=== PATIENT | male | born 1965 | race Two or more races ===

== ENCOUNTER → 2017-01-13 | Outpatient (CLI) | payer MEDICARE, MEDICAID ==
[2017-01-13 09:08] LABS: ABSOLUTE EOSINOPHILS # (AUTO) 0.2 10^3/uL (0.0-0.6); ABSOLUTE LYMPHOCYTES (AUTO) 1.8 10^3/uL (0.5-4.7); ABSOLUTE MONOCYTES (AUTO) 0.8 10^3/uL (0.1-1.4); ABSOLUTE NEUT (AUTO) 4.5 10^3/uL (1.7-8.2); BASOPHILS % (AUTO) 0.6 % (0-2); EOSINOPHILS % (AUTO) 2.3 % (0-6); HEMATOCRIT 35.2 % (37.9-51.0); HGB HCT DIFFERENCE 0.8; LYMPHOCYTES % (AUTO) 24.2 % (13-45); MEAN CORPUSCULAR HEMOGLOBIN 32.5 pg (27.0-33.4); MEAN CORPUSCULAR VOLUME 96 fl (80-97); MONOCYTES % (AUTO) 11.5 % (3-13); RED BLOOD COUNT 3.68 10^6/uL (4.35-5.55); SEGMENTED NEUTROPHILS % (AUTO) 61.4 % (42-78); WHITE BLOOD COUNT 7.3 10^3/uL (4.0-10.5)
[2017-01-13 09:27] LABS: ALANINE AMINOTRANSFERASE 28 U/L (21-72); ALBUMIN 3.9 g/dL (3.5-5.0); ALKALINE PHOSPHATASE 66 U/L (38-126); ANION GAP 8 (5-19); ASPARTATE AMINO TRANSFERASE 21 U/L (17-59); BILIRUBIN,DIRECT 0.4 mg/dL (0.0-0.4); BILIRUBIN,TOTAL 0.5 mg/dL (0.2-1.3); BLOOD UREA NITROGEN 28 mg/dL (7-20); CALCIUM 9.4 mg/dL (8.4-10.2); CARBON DIOXIDE 27 mmol/L (22-30); CHLORIDE 107 mmol/L (98-107); CHOLESTEROL 168.16 mg/dL (0-200); CREATININE RESULT 2.38 mg/dL (0.52-1.25); Direct HDL 61 mg/dL (>40); GLUCOSE 56 mg/dL (75-110); POTASSIUM 4.4 mmol/L (3.6-5.0); SODIUM 142.2 mmol/L (137-145); TOTAL PROTEIN 6.8 g/dL (6.3-8.2); TRIGLYCERIDES 62 mg/dL (<150)
[2017-01-13 09:50] LABS: DIRECT LDL 71 mg/dL (<100)
== END ==
LOC: OD 07:09
PROVIDERS: ATTEND Physician Assistant
DX: E11.40 Type 2 diabetes mellitus with diabetic neuropathy, unspecified (principal); E78.5 Hyperlipidemia, unspecified; D64.9 Anemia, unspecified
CPT/HCPCS: 36415; 80053; 80061; 83036; 85025

== ENCOUNTER → 2017-05-06 | Outpatient (CLI) | payer MEDICARE, MEDICAID ==
[2017-05-06 08:16] LABS: ABSOLUTE EOSINOPHILS # (AUTO) 0.2 10^3/uL (0.0-0.6); ABSOLUTE MONOCYTES (AUTO) 0.8 10^3/uL (0.1-1.4); BASOPHILS % (AUTO) 0.5 % (0-2); EOSINOPHILS % (AUTO) 2.6 % (0-6); HEMATOCRIT 32.9 % (37.9-51.0); HEMOGLOBIN 11.4 g/dL (13.5-17.0); HGB HCT DIFFERENCE 1.3; LYMPHOCYTES % (AUTO) 28.3 % (13-45); MEAN CORPUSCULAR HEMOGLOBIN 32.4 pg (27.0-33.4); MEAN CORPUSCULAR HGB CONC 34.6 g/dL (32.0-36.0); MEAN CORPUSCULAR VOLUME 94 fl (80-97); MONOCYTES % (AUTO) 10.8 % (3-13); RED BLOOD COUNT 3.51 10^6/uL (4.35-5.55); SEGMENTED NEUTROPHILS % (AUTO) 57.8 % (42-78)
[2017-05-06 08:42] LABS: ALANINE AMINOTRANSFERASE 24 U/L (21-72); ALBUMIN 3.7 g/dL (3.5-5.0); ALKALINE PHOSPHATASE 63 U/L (38-126); ANION GAP 9 (5-19); ASPARTATE AMINO TRANSFERASE 18 U/L (17-59); BILIRUBIN,DIRECT 0.3 mg/dL (0.0-0.4); BILIRUBIN,TOTAL 0.4 mg/dL (0.2-1.3); BLOOD UREA NITROGEN 21 mg/dL (7-20); CALCIUM 8.7 mg/dL (8.4-10.2); CARBON DIOXIDE 28 mmol/L (22-30); CHLORIDE 107 mmol/L (98-107); CHOLESTEROL 149.31 mg/dL (0-200); CREATININE RESULT 2.38 mg/dL (0.52-1.25); Direct HDL 54 mg/dL (>40); GLUCOSE 66 mg/dL (75-110); POTASSIUM 3.7 mmol/L (3.6-5.0); SODIUM 144.2 mmol/L (137-145); TOTAL PROTEIN 6.1 g/dL (6.3-8.2); TRIGLYCERIDES 123 mg/dL (<150)
[2017-05-06 08:53] LABS: DIRECT LDL 52 mg/dL (<100)
== END ==
LOC: OD 07:08
PROVIDERS: ATTEND Physician Assistant
DX: E11.40 Type 2 diabetes mellitus with diabetic neuropathy, unspecified (principal); E78.5 Hyperlipidemia, unspecified; I10 Essential (primary) hypertension
CPT/HCPCS: 36415; 80053; 80061; 83036; 85025

== ENCOUNTER → 2017-08-11 | Outpatient (CLI) | payer MEDICARE, MEDICAID ==
[2017-08-11 09:25] LABS: ALANINE AMINOTRANSFERASE 41 U/L (21-72); ALBUMIN 4.1 g/dL (3.5-5.0); ALKALINE PHOSPHATASE 59 U/L (38-126); ANION GAP 11 (5-19); ASPARTATE AMINO TRANSFERASE 27 U/L (17-59); BILIRUBIN,DIRECT 0.2 mg/dL (0.0-0.4); BILIRUBIN,TOTAL 0.3 mg/dL (0.2-1.3); BLOOD UREA NITROGEN 27 mg/dL (7-20); CALCIUM 9.6 mg/dL (8.4-10.2); CARBON DIOXIDE 26 mmol/L (22-30); CHLORIDE 107 mmol/L (98-107); GLUCOSE 59 mg/dL (75-110); POTASSIUM 4.3 mmol/L (3.6-5.0); SODIUM 144.4 mmol/L (137-145); TOTAL PROTEIN 6.6 g/dL (6.3-8.2)
== END ==
LOC: OD 07:47
PROVIDERS: ATTEND Physician Assistant
DX: E11.22 Type 2 diabetes mellitus with diabetic chronic kidney disease (principal); N18.9 Chronic kidney disease, unspecified
CPT/HCPCS: 36415; 80053; 83036

== ENCOUNTER → 2017-10-16 | Outpatient (CLI) | payer MEDICARE, MEDICAID ==
[2017-10-16 07:44] LABS: ABSOLUTE EOSINOPHILS # (AUTO) 0.1 10^3/uL (0.0-0.6); ABSOLUTE LYMPHOCYTES (AUTO) 1.1 10^3/uL (0.5-4.7); ABSOLUTE MONOCYTES (AUTO) 0.7 10^3/uL (0.1-1.4); ABSOLUTE NEUT (AUTO) 4.4 10^3/uL (1.7-8.2); BASOPHILS % (AUTO) 0.5 % (0-2); EOSINOPHILS % (AUTO) 1.8 % (0-6); HEMATOCRIT 34.4 % (37.9-51.0); HEMOGLOBIN 11.8 g/dL (13.5-17.0); LYMPHOCYTES % (AUTO) 17.8 % (13-45); MEAN CORPUSCULAR HEMOGLOBIN 31.7 pg (27.0-33.4); MEAN CORPUSCULAR HGB CONC 34.4 g/dL (32.0-36.0); MEAN CORPUSCULAR VOLUME 92 fl (80-97); MONOCYTES % (AUTO) 11.6 % (3-13); PLATELET COUNT 283 10^3/uL (150-450); RED BLOOD COUNT 3.73 10^6/uL (4.35-5.55); RED CELL DISTRIBUTION WIDTH 12.1 % (11.5-14.0); SEGMENTED NEUTROPHILS % (AUTO) 68.3 % (42-78); TOTAL CELLS COUNTED % (AUTO) 100 %; WHITE BLOOD COUNT 6.4 10^3/uL (4.0-10.5)
[2017-10-16 08:11] LABS: ALBUMIN 3.6 g/dL (3.5-5.0); ANION GAP 10 (5-19); BLOOD UREA NITROGEN 29 mg/dL (7-20); CALCIUM 8.9 mg/dL (8.4-10.2); CARBON DIOXIDE 30 mmol/L (22-30); CHLORIDE 104 mmol/L (98-107); GLUCOSE 245 mg/dL (75-110); PHOSPHORUS 3.9 mg/dL (2.5-4.5); POTASSIUM 4.4 mmol/L (3.6-5.0); SODIUM 143.8 mmol/L (137-145)
[2017-10-16 08:23] LABS: URINE CREATININE 87.5 mg/dL (22-328)
[2017-10-16 08:36] LABS: UR PRO/CREAT RATIO RESULT 5.1 mg/mg (0.0-0.2)
== END ==
LOC: OD 07:10
PROVIDERS: ATTEND Internal Medicine Nephrology
DX: E11.22 Type 2 diabetes mellitus with diabetic chronic kidney disease (principal); N18.4 Chronic kidney disease, stage 4 (severe); D64.9 Anemia, unspecified; E11.21 Type 2 diabetes mellitus with diabetic nephropathy
CPT/HCPCS: 36415; 80048; 82040; 82306; 82570; 83970; 84100; 84156; 85025

== ENCOUNTER 2017-11-03 14:12 | Emergency (ER) | payer MEDICARE, MEDICAID ==
[2017-11-03] MEDS ORDERED: ASPIRIN 81 MG TABLET, CHEWABLE PO ONE (15:25)
--- NOTE | 2017-11-03 15:32 | ER Document Report ---
ED Cardiac - General Chief Complaint: Chest Pain Stated Complaint: CHEST PAIN/HEADACHE Time Seen by Provider: 11/03/17 15:11 TRAVEL OUTSIDE OF THE [place] IN LAST 30 DAYS: No - HPI Notes: 52-year-old diabetic male presents with approximately 5 days of intermittent left-sided chest pain sharp in nature 11/09 no other associated symptoms with this. States every like 10 or 15 minutes he will get a sharp pain left side of his chest. This occurs at rest. Does not get worse with exertion denies diaphoresis, nausea. Is not reproducible. Patient has a history of stroke is on daily blood thinners. Patient states he placed 6 or 7 hours of video games a day. He will notice when he is playing with a sharp pain. Denies fever chills or trauma. - Related Data Allergies/Adverse Reactions: JANET Inhibitors Allergy (Verified 11/03/17 14:14) lisinopril Allergy (Verified 11/03/17 14:14) Past Medical History - Social History Smoking Status: Former Smoker Chew tobacco use (# tins/day): No Frequency of alcohol use: None Drug Abuse: None Family History: Reviewed & Not Pertinent Patient has suicidal ideation: No Patient has homicidal ideation: No - Past Medical History Cardiac Medical History: Reports: Hx Hypercholesterolemia, Hx Hypertension Pulmonary Medical History: Denies: Hx Tuberculosis Endocrine Medical History: Reports: Hx Diabetes Mellitus Type 1, Hx Diabetes Mellitus Type 2 Renal/ Medical History: Denies: Hx Peritoneal Dialysis GI Medical History: Reports: Hx Gastroesophageal Reflux Disease Psychiatric Medical History: Reports: Hx Schizophrenia Denies: Hx Depression Past Surgical History: Reports: Hx Oral Surgery - Jaw surgery. Denies: Hx Pacemaker - Immunizations Hx Diphtheria, Pertussis, Tetanus Vaccination: Yes Hx Pneumococcal Vaccination: 04/05/14 Review of Systems - Review of Systems Notes: REVIEW OF SYSTEMS: CONSTITUTIONAL: -fevers, -chills EENT: -eye pain, -difficulty swallowing, -nasal congestion CARDIOVASCULAR: +chest pain, -syncope. RESPIRATORY: -cough, -SOB GASTROINTESTINAL: -abdominal pain, -nausea, -vomiting, -diarrhea GENITOURINARY: -dysuria, -hematuria MUSCULOSKELETAL: -back pain, -neck pain SKIN: -rash or skin lesions. HEMATOLOGIC: -easy bruising or bleeding. LYMPHATIC: -swollen, enlarged glands. NEUROLOGICAL: -altered mental status or loss of consciousness, -headache, - neurologic symptoms PSYCHIATRIC: -anxiety, -depression. ALL OTHER SYSTEMS REVIEWED AND NEGATIVE. Physical Exam - Vital signs Vitals: Temp Pulse Resp BP Pulse Ox 97.6 F 64 16 135/67 H 98 11/03/17 14:26 11/03/17 14:11/03/17 14:11/03/17 14:11/03/17 14:26 - Notes Notes: PHYSICAL EXAMINATION: GENERAL: Well-appearing, well-nourished and in no acute distress. HEAD: Atraumatic, normocephalic. EYES: Pupils equal round and reactive to light, extraocular movements intact, sclera anicteric, conjunctiva are normal. ENT: nares patent, oropharynx clear without exudates. Moist mucous membranes. NECK: Normal range of motion, supple without lymphadenopathy LUNGS: Breath sounds clear to auscultation bilaterally and equal. No wheezes rales or rhonchi. HEART: Regular rate and rhythm without murmurs ABDOMEN: Soft, nontender, normoactive bowel sounds. No guarding, no rebound. No masses appreciated. EXTREMITIES: Normal range of motion, no pitting or edema. No cyanosis. NEUROLOGICAL: Cranial nerves grossly intact. Normal speech, normal gait. Normal sensory and motor exams. PSYCH: Normal mood, normal affect. SKIN: Warm, Dry, normal turgor, no rashes or lesions noted. Course - Re-evaluation Re-evalutation: 11/03/17 17:46 Well-appearing man presents with several days of intermittent short episodes of sharp shooting chest pain. Low risk heart score of 3. Extensive workup here unremarkable EKG is no ischemic changes chest x-ray is unremarkable troponins negative. Patient will be discharged home. Referral to outpatient cardiology stress test tomorrow. - Vital Signs Vital signs: Temp Pulse Resp BP Pulse Ox 97.6 F 64 16 135/67 H 98 11/03/17 14:26 11/03/17 14:26 11/03/17 14:11/03/17 14:11/03/17 14:26 - Laboratory Result Diagrams: 11/03/17 16:45 11/03/17 16:45 Laboratory results interpreted by me: 11/03/17 11/03/17 16:45 16:45 RBC 3.60 L Hgb 11.5 L Hct 33.2 L Carbon Dioxide 31 H BUN 38 H Creatinine 3.47 H Est GFR ( Amer) 23 L Est GFR (Non-Af Amer) 19 L Glucose 123 H - EKG Interpretation by Me Additional EKG results interpreted by me: 11/03/17 15:33 Sinus rhythm, no ST elevations or depressions, normal QRS. Discharge - Discharge Clinical Impression: Chest pain Qualifiers: Chest pain type: unspecified Qualified Code(s): R07.9 - Chest pain, unspecified Condition: Stable Disposition: HOME, SELF-CARE Instructions: Chest Pain of Unclear Cause ([facility]) Additional Instructions: Contact Cadiologist Rick Devries in [facility] will contact you for stress test Referrals: GRIFFIN SINGH MD [Primary Care Provider] - Follow up as needed
--- NOTE | 2017-11-03 16:06 | RADIOLOGY REPORT (SQ) ---
EXAM DESCRIPTION: CHEST 2 VIEWS COMPLETED DATE/TIME: 11/03/2017 3:54 pm REASON FOR STUDY: chest pain COMPARISON: 01/28/2016 EXAM PARAMETERS: NUMBER OF VIEWS: two views TECHNIQUE: Digital Frontal and Lateral radiographic views of the chest acquired. RADIATION DOSE: NA LIMITATIONS: none FINDINGS: LUNGS AND PLEURA: No opacities, masses or pneumothorax. No pleural effusion. MEDIASTINUM AND HILAR STRUCTURES: No masses or contour abnormalities. HEART AND VASCULAR STRUCTURES: Heart normal size. No evidence for failure. BONES: No acute findings. HARDWARE: None in the chest. OTHER: No other significant finding. IMPRESSION: NO ACUTE RADIOGRAPHIC FINDING IN THE CHEST. TECHNICAL DOCUMENTATION: JOB ID: [id number] [employer]- All Rights Reserved Reading location - IP/workstation name: [email or web address]
[2017-11-03 17:08] LABS: ABSOLUTE EOSINOPHILS # (AUTO) 0.1 10^3/uL (0.0-0.6); ABSOLUTE LYMPHOCYTES (AUTO) 1.4 10^3/uL (0.5-4.7); ABSOLUTE MONOCYTES (AUTO) 0.6 10^3/uL (0.1-1.4); ABSOLUTE NEUT (AUTO) 2.6 10^3/uL (1.7-8.2); BASOPHILS % (AUTO) 0.6 % (0-2); EOSINOPHILS % (AUTO) 2.2 % (0-6); HEMATOCRIT 33.2 % (37.9-51.0); HEMOGLOBIN 11.5 g/dL (13.5-17.0); LYMPHOCYTES % (AUTO) 29.2 % (13-45); MEAN CORPUSCULAR HEMOGLOBIN 31.9 pg (27.0-33.4); MEAN CORPUSCULAR HGB CONC 34.5 g/dL (32.0-36.0); MEAN CORPUSCULAR VOLUME 92 fl (80-97); MONOCYTES % (AUTO) 12.5 % (3-13); PLATELET COUNT 239 10^3/uL (150-450); RED CELL DISTRIBUTION WIDTH 11.9 % (11.5-14.0); SEGMENTED NEUTROPHILS % (AUTO) 55.5 % (42-78); TOTAL CELLS COUNTED % (AUTO) 100 %; WHITE BLOOD COUNT 4.7 10^3/uL (4.0-10.5)
[2017-11-03 17:24] LABS: ANION GAP 6 (5-19); BLOOD UREA NITROGEN 38 mg/dL (7-20); CALCIUM 9.3 mg/dL (8.4-10.2); CARBON DIOXIDE 31 mmol/L (22-30); CHLORIDE 104 mmol/L (98-107); GLUCOSE 123 mg/dL (75-110); POTASSIUM 4.7 mmol/L (3.6-5.0); SODIUM 140.9 mmol/L (137-145)
[2017-11-03 18:10] VITALS: BP 167/90
--- NOTE | 2017-11-03 20:01 | EKG REPORT ---
SEVERITY:- ABNORMAL ECG - SINUS RHYTHM CONSIDER LEFT VENTRICULAR HYPERTROPHY BORDERLINE T ABNORMALITIES, INFERIOR LEADS : Confirmed by: Eleonora Albright MD 03-Nov-2017 20:00:37
== END 2017-11-03 18:01 | disposition home or self-care (01) ==
LOC: ER 14:12
DX: R07.9 Chest pain, unspecified (principal); R51 Headache; Z86.73 Personal history of transient ischemic attack (TIA), and cerebral infarction without residual deficits; Z79.01 Long term (current) use of anticoagulants; I10 Essential (primary) hypertension; E11.9 Type 2 diabetes mellitus without complications
CPT/HCPCS: 93005; 99285; 36415; 85025; 80048; 84484; 71046; 93010; A9270

== ENCOUNTER → 2017-11-19 | Outpatient (CLI) | payer MEDICARE, MEDICAID ==
[2017-11-19 08:33] LABS: ALANINE AMINOTRANSFERASE 21 U/L (21-72); ALBUMIN 3.9 g/dL (3.5-5.0); ALKALINE PHOSPHATASE 50 U/L (38-126); ANION GAP 8 (5-19); ASPARTATE AMINO TRANSFERASE 14 U/L (17-59); BILIRUBIN,DIRECT 0.3 mg/dL (0.0-0.4); BILIRUBIN,TOTAL 0.4 mg/dL (0.2-1.3); BLOOD UREA NITROGEN 39 mg/dL (7-20); CALCIUM 8.8 mg/dL (8.4-10.2); CARBON DIOXIDE 29 mmol/L (22-30); CHLORIDE 108 mmol/L (98-107); GLUCOSE 74 mg/dL (75-110); POTASSIUM 4.2 mmol/L (3.6-5.0); TOTAL PROTEIN 6.6 g/dL (6.3-8.2); TRIGLYCERIDES 90 mg/dL (<150)
[2017-11-19 08:44] LABS: DIRECT LDL 45 mg/dL (<100)
== END ==
LOC: OD 07:25
PROVIDERS: ATTEND Internal Medicine
DX: E11.22 Type 2 diabetes mellitus with diabetic chronic kidney disease (principal); I10 Essential (primary) hypertension
CPT/HCPCS: 36415; 80053; 80061; 83036

== ENCOUNTER → 2018-01-28 | Outpatient (CLI) | payer MEDICARE, MEDICAID ==
[2018-01-28 08:35] LABS: ALANINE AMINOTRANSFERASE 19 U/L (21-72); ALBUMIN 3.9 g/dL (3.5-5.0); ALKALINE PHOSPHATASE 58 U/L (38-126); ANION GAP 11 (5-19); ASPARTATE AMINO TRANSFERASE 13 U/L (17-59); BILIRUBIN,DIRECT 0.3 mg/dL (0.0-0.4); BILIRUBIN,TOTAL 0.3 mg/dL (0.2-1.3); BLOOD UREA NITROGEN 25 mg/dL (7-20); CALCIUM 9.2 mg/dL (8.4-10.2); CARBON DIOXIDE 27 mmol/L (22-30); CHLORIDE 107 mmol/L (98-107); GLUCOSE 68 mg/dL (75-110); POTASSIUM 3.9 mmol/L (3.6-5.0); SODIUM 145.4 mmol/L (137-145); TOTAL PROTEIN 6.9 g/dL (6.3-8.2)
== END ==
LOC: OD 07:43
PROVIDERS: ATTEND Internal Medicine
DX: I10 Essential (primary) hypertension (principal)
CPT/HCPCS: 36415; 80053

== ENCOUNTER → 2018-06-01 | Outpatient (CLI) | payer MEDICARE, MEDICAID ==
[2018-06-01 08:19] LABS: ABSOLUTE EOSINOPHILS # (AUTO) 0.2 10^3/uL (0.0-0.6); ABSOLUTE LYMPHOCYTES (AUTO) 1.6 10^3/uL (0.5-4.7); ABSOLUTE MONOCYTES (AUTO) 0.8 10^3/uL (0.1-1.4); ABSOLUTE NEUT (AUTO) 4.2 10^3/uL (1.7-8.2); BASOPHILS % (AUTO) 0.4 % (0-2); EOSINOPHILS % (AUTO) 3.4 % (0-6); HEMATOCRIT 33.1 % (37.9-51.0); HEMOGLOBIN 11.6 g/dL (13.5-17.0); LYMPHOCYTES % (AUTO) 23.2 % (13-45); MEAN CORPUSCULAR HEMOGLOBIN 31.6 pg (27.0-33.4); MEAN CORPUSCULAR VOLUME 90 fl (80-97); MONOCYTES % (AUTO) 11.5 % (3-13); PLATELET COUNT 306 10^3/uL (150-450); RED BLOOD COUNT 3.67 10^6/uL (4.35-5.55); RED CELL DISTRIBUTION WIDTH 12.2 % (11.5-14.0); SEGMENTED NEUTROPHILS % (AUTO) 61.5 % (42-78); TOTAL CELLS COUNTED % (AUTO) 100 %; WHITE BLOOD COUNT 6.9 10^3/uL (4.0-10.5)
[2018-06-01 08:22] LABS: APPEARANCE,URINE CLEAR; BILIRUBIN,URINE NEGATIVE (NEGATIVE); COLOR,URINE STRAW; GLUCOSE, URINE 50 mg/dL (NEGATIVE); KETONES,URINE NEGATIVE (NEGATIVE); LEUKOCYTE ESTERASE,URINE NEGATIVE (NEGATIVE); NITRITE,URINE NEGATIVE (NEGATIVE); PROTEIN,URINE >=500 mg/dL (NEGATIVE); URINE SPECIFIC GRAVITY 1.008; UROBILINOGEN,URINE NEGATIVE mg/dL (<2.0)
[2018-06-01 08:44] LABS: ANION GAP 7 (5-19); BLOOD UREA NITROGEN 28 mg/dL (7-20); CALCIUM 8.9 mg/dL (8.4-10.2); CARBON DIOXIDE 30 mmol/L (22-30); CHLORIDE 105 mmol/L (98-107); GLUCOSE 88 mg/dL (75-110); POTASSIUM 3.9 mmol/L (3.6-5.0); SODIUM 142.1 mmol/L (137-145)
[2018-06-03 12:08] LABS: UR PRO/CREAT RATIO RESULT 5.5 mg/mg (0.0-0.2); URINE PROTEIN 398.3 mg/dL (<12)
== END ==
LOC: OD 07:21
PROVIDERS: ATTEND Internal Medicine Nephrology
DX: N18.4 Chronic kidney disease, stage 4 (severe) (principal); D63.1 Anemia in chronic kidney disease; E11.21 Type 2 diabetes mellitus with diabetic nephropathy
CPT/HCPCS: 36415; 80048; 81001; 82043; 82570; 84156; 85025

== ENCOUNTER → 2018-08-11 | Outpatient (CLI) | payer MEDICARE, MEDICAID ==
[2018-08-11 14:12] LABS: ALANINE AMINOTRANSFERASE 23 U/L (21-72); ALBUMIN 4.1 g/dL (3.5-5.0); ALKALINE PHOSPHATASE 68 U/L (38-126); ANION GAP 9 (5-19); ASPARTATE AMINO TRANSFERASE 14 U/L (17-59); BLOOD UREA NITROGEN 33 mg/dL (7-20); CALCIUM 9.4 mg/dL (8.4-10.2); CARBON DIOXIDE 28 mmol/L (22-30); CHLORIDE 106 mmol/L (98-107); CHOLESTEROL 165.55 mg/dL (0-200); POTASSIUM 3.5 mmol/L (3.6-5.0); SODIUM 142.5 mmol/L (137-145); TOTAL PROTEIN 6.9 g/dL (6.3-8.2); TRIGLYCERIDES 90 mg/dL (<150)
[2018-08-11 14:22] LABS: DIRECT LDL 67 mg/dL (<100)
[2018-08-11 15:31] LABS: BILIRUBIN,TOTAL 0.4 mg/dL (0.2-1.3)
[2018-08-11 15:34] LABS: GLUCOSE 54 mg/dL (75-110)
[2018-08-11 15:35] LABS: BILIRUBIN,DIRECT 0.2 mg/dL (0.0-0.4)
[2018-08-12 13:38] LABS: CREATININE URINE 108.2 mg/dL (Not Estab.)
== END ==
LOC: OD 12:13
PROVIDERS: ATTEND Internal Medicine
DX: E11.22 Type 2 diabetes mellitus with diabetic chronic kidney disease (principal); E78.5 Hyperlipidemia, unspecified; E53.8 Deficiency of other specified B group vitamins
CPT/HCPCS: 36415; 80053; 80061; 82043; 82570; 82607; 83036

== ENCOUNTER → 2018-09-14 | Outpatient (CLI) | payer MEDICARE, MEDICAID ==
[2018-09-14 10:39] LABS: ABSOLUTE EOSINOPHILS # (AUTO) 0.2 10^3/uL (0.0-0.6); ABSOLUTE LYMPHOCYTES (AUTO) 1.4 10^3/uL (0.5-4.7); ABSOLUTE MONOCYTES (AUTO) 0.7 10^3/uL (0.1-1.4); ABSOLUTE NEUT (AUTO) 3.5 10^3/uL (1.7-8.2); BASOPHILS % (AUTO) 0.6 % (0-2); EOSINOPHILS % (AUTO) 3.2 % (0-6); HEMATOCRIT 29.5 % (37.9-51.0); HEMOGLOBIN 10.5 g/dL (13.5-17.0); LYMPHOCYTES % (AUTO) 24.9 % (13-45); MEAN CORPUSCULAR HGB CONC 35.5 g/dL (32.0-36.0); MEAN CORPUSCULAR VOLUME 90 fl (80-97); MONOCYTES % (AUTO) 11.5 % (3-13); PLATELET COUNT 228 10^3/uL (150-450); RED BLOOD COUNT 3.27 10^6/uL (4.35-5.55); RED CELL DISTRIBUTION WIDTH 12.3 % (11.5-14.0); SEGMENTED NEUTROPHILS % (AUTO) 59.8 % (42-78); TOTAL CELLS COUNTED % (AUTO) 100 %; WHITE BLOOD COUNT 5.8 10^3/uL (4.0-10.5)
[2018-09-14 10:41] LABS: APPEARANCE,URINE CLEAR; BILIRUBIN,URINE NEGATIVE (NEGATIVE); COLOR,URINE STRAW; GLUCOSE, URINE 50 mg/dL (NEGATIVE); KETONES,URINE NEGATIVE (NEGATIVE); LEUKOCYTE ESTERASE,URINE NEGATIVE (NEGATIVE); NITRITE,URINE NEGATIVE (NEGATIVE); PROTEIN,URINE >=500 mg/dL (NEGATIVE); UROBILINOGEN,URINE NEGATIVE mg/dL (<2.0)
[2018-09-14 10:54] LABS: ALBUMIN 3.6 g/dL (3.5-5.0); ANION GAP 9 (5-19); BLOOD UREA NITROGEN 38 mg/dL (7-20); CALCIUM 8.7 mg/dL (8.4-10.2); CARBON DIOXIDE 27 mmol/L (22-30); CHLORIDE 104 mmol/L (98-107); GLUCOSE 110 mg/dL (75-110); PHOSPHORUS 4.6 mg/dL (2.5-4.5); POTASSIUM 3.8 mmol/L (3.6-5.0); SODIUM 140.4 mmol/L (137-145)
[2018-09-14 11:12] LABS: URINE CREATININE 94.9 mg/dL (22-328)
[2018-09-14 11:27] LABS: UR PRO/CREAT RATIO RESULT 3.7 mg/mg (0.0-0.2); URINE PROTEIN 349.6 mg/dL (<12)
== END ==
LOC: OD 09:24
PROVIDERS: ATTEND Internal Medicine Nephrology
DX: I12.9 Hypertensive chronic kidney disease with stage 1 through stage 4 chronic kidney disease, or unspecified chronic kidney disease (principal); N18.4 Chronic kidney disease, stage 4 (severe); E11.22 Type 2 diabetes mellitus with diabetic chronic kidney disease
CPT/HCPCS: 36415; 80069; 81001; 82306; 82570; 83970; 84156; 85025

== ENCOUNTER → 2018-11-10 | Outpatient (CLI) | payer MEDICARE, MEDICAID ==
[2018-11-10 09:03] LABS: ALANINE AMINOTRANSFERASE 46 U/L (21-72); ALBUMIN 4.3 g/dL (3.5-5.0); ALKALINE PHOSPHATASE 64 U/L (38-126); ANION GAP 13 (5-19); ASPARTATE AMINO TRANSFERASE 17 U/L (17-59); BILIRUBIN,DIRECT 0.3 mg/dL (0.0-0.4); BILIRUBIN,TOTAL 0.3 mg/dL (0.2-1.3); BLOOD UREA NITROGEN 51 mg/dL (7-20); CALCIUM 9.2 mg/dL (8.4-10.2); CARBON DIOXIDE 26 mmol/L (22-30); CHLORIDE 102 mmol/L (98-107); CHOLESTEROL 178.66 mg/dL (0-200); GLUCOSE 103 mg/dL (75-110); POTASSIUM 4.5 mmol/L (3.6-5.0); SODIUM 140.7 mmol/L (137-145); TRIGLYCERIDES 130 mg/dL (<150)
[2018-11-10 09:14] LABS: DIRECT LDL 67 mg/dL (<100)
== END ==
LOC: OD 07:19
PROVIDERS: ATTEND Internal Medicine
DX: E53.8 Deficiency of other specified B group vitamins (principal); E11.22 Type 2 diabetes mellitus with diabetic chronic kidney disease; E78.5 Hyperlipidemia, unspecified
CPT/HCPCS: 36415; 80053; 80061; 82607; 83036

== ENCOUNTER → 2018-11-12 | Outpatient (CLI) | payer MEDICARE, MEDICAID ==
[2018-11-12 07:57] LABS: ABSOLUTE EOSINOPHILS # (AUTO) 0.2 10^3/uL (0.0-0.6); ABSOLUTE LYMPHOCYTES (AUTO) 1.5 10^3/uL (0.5-4.7); ABSOLUTE MONOCYTES (AUTO) 0.9 10^3/uL (0.1-1.4); ABSOLUTE NEUT (AUTO) 4.8 10^3/uL (1.7-8.2); BASOPHILS % (AUTO) 0.5 % (0-2); EOSINOPHILS % (AUTO) 2.4 % (0-6); HEMOGLOBIN 10.3 g/dL (13.5-17.0); LYMPHOCYTES % (AUTO) 19.9 % (13-45); MEAN CORPUSCULAR HEMOGLOBIN 30.9 pg (27.0-33.4); MEAN CORPUSCULAR HGB CONC 34.3 g/dL (32.0-36.0); MEAN CORPUSCULAR VOLUME 90 fl (80-97); MONOCYTES % (AUTO) 11.7 % (3-13); PLATELET COUNT 339 10^3/uL (150-450); RED BLOOD COUNT 3.33 10^6/uL (4.35-5.55); RED CELL DISTRIBUTION WIDTH 12.6 % (11.5-14.0); SEGMENTED NEUTROPHILS % (AUTO) 65.5 % (42-78); TOTAL CELLS COUNTED % (AUTO) 100 %; WHITE BLOOD COUNT 7.3 10^3/uL (4.0-10.5)
[2018-11-12 08:16] LABS: APPEARANCE,URINE CLEAR; BILIRUBIN,URINE NEGATIVE (NEGATIVE); COLOR,URINE YELLOW; GLUCOSE, URINE 50 mg/dL (NEGATIVE); KETONES,URINE NEGATIVE (NEGATIVE); LEUKOCYTE ESTERASE,URINE NEGATIVE (NEGATIVE); NITRITE,URINE NEGATIVE (NEGATIVE); PROTEIN,URINE >=500 mg/dL (NEGATIVE); URINE SPECIFIC GRAVITY 1.012; UROBILINOGEN,URINE NEGATIVE mg/dL (<2.0)
[2018-11-12 08:16] LABS: ANION GAP 10 (5-19); BLOOD UREA NITROGEN 47 mg/dL (7-20); CARBON DIOXIDE 27 mmol/L (22-30); CHLORIDE 104 mmol/L (98-107); GLUCOSE 52 mg/dL (75-110); IRON(TIBC) 138.5 ug/dL (49-181); PHOSPHORUS 5.7 mg/dL (2.5-4.5); POTASSIUM 4.3 mmol/L (3.6-5.0); SODIUM 141.4 mmol/L (137-145)
[2018-11-12 08:29] LABS: URINE CREATININE 122.4 mg/dL (22-328)
[2018-11-12 08:43] LABS: UR PRO/CREAT RATIO RESULT 2.9 mg/mg (0.0-0.2); URINE PROTEIN 357.7 mg/dL (<12)
== END ==
LOC: OD 07:17
PROVIDERS: ATTEND Internal Medicine Nephrology
DX: I12.0 Hypertensive chronic kidney disease with stage 5 chronic kidney disease or end stage renal disease (principal); N18.5 Chronic kidney disease, stage 5; E11.22 Type 2 diabetes mellitus with diabetic chronic kidney disease; E11.40 Type 2 diabetes mellitus with diabetic neuropathy, unspecified; N25.81 Secondary hyperparathyroidism of renal origin; D63.1 Anemia in chronic kidney disease
CPT/HCPCS: 36415; 80048; 81001; 82306; 82570; 82728; 83540; 83550; 83970; 84100; 84156; 85025

== ENCOUNTER → 2018-12-28 | Outpatient (CLI) | payer MEDICARE, MEDICAID ==
[2018-12-28 10:08] LABS: CREATININE 8.18 mg/dL (0.52-1.25)
[2018-12-28 10:49] LABS: 24 HOUR URINE PROTEIN RESULT 2257 mg/day (42-225); URINE PROTEIN 111.2 mg/dL (<12)
[2018-12-28 10:50] LABS: URINE CREATININE 59.2 mg/dL (22-328)
[2018-12-30 07:45] LABS: HEPATITS B SURFACE ANTIGEN Negative (Negative)
[2018-12-30 08:37] LABS: HEPATITIS C VIRUS AB <0.1 s/co ratio (0.0-0.9)
== END ==
LOC: OD 08:38
PROVIDERS: ATTEND Internal Medicine Nephrology
DX: Z11.59 Encounter for screening for other viral diseases (principal); N18.5 Chronic kidney disease, stage 5; E11.21 Type 2 diabetes mellitus with diabetic nephropathy; E11.22 Type 2 diabetes mellitus with diabetic chronic kidney disease; I12.9 Hypertensive chronic kidney disease with stage 1 through stage 4 chronic kidney disease, or unspecified chronic kidney disease
CPT/HCPCS: 36415; 82575; 84156; 86317; 86803; 86804; 87340

== ENCOUNTER 2019-01-05 01:29 | Emergency (ER) | payer MEDICARE, MEDICAID ==
--- NOTE | 2019-01-05 08:14 | ER Document Report ---
ED General - General Chief Complaint: Post Surgical Bleeding Stated Complaint: BLEED FROM CHEST Time Seen by Provider: 01/05/19 07:10 Primary Care Provider: BRAYDON KOWALSKI MD [Primary Care Provider] - Follow up as needed TRAVEL OUTSIDE OF THE [place] IN LAST 30 DAYS: No - HPI Notes: Patient is a 53-year-old male who presents to the emergency department for evaluation of postoperative bleeding. The patient had a tunneled IJ catheter for dialysis placed yesterday [place]. He has had seepage of blood throughout the bandage that has been ongoing since the procedure. I wanted to evaluate the patient, he states he believes the bleeding stopped about an hour ago. He is currently on Plavix. He denies any pain. No difficulty breathing. No fevers or chills. Taking his medications as prescribed. - Related Data Allergies/Adverse Reactions: JANET Inhibitors Allergy (Verified 11/03/17 14:14) lisinopril Allergy (Verified 11/03/17 14:14) Home Medications: Norvasc, atenolol, atorvastatin, clonidine, Plavix, Flexeril, vitamin D2, ferrous sulfate, Lasix, Neurontin, paricalcitriol, pioglitazone, spironolactone, insulin Past Medical History - General Information source: Patient - Social History Smoking Status: Never Smoker Family History: Reviewed & Not Pertinent Patient has suicidal ideation: No Patient has homicidal ideation: No - Past Medical History Cardiac Medical History: Reports: Hx Hypercholesterolemia, Hx Hypertension Pulmonary Medical History: Denies: Hx Tuberculosis Neurological Medical History: Reports: Hx Cerebrovascular Accident Endocrine Medical History: Reports: Hx Diabetes Mellitus Type 2 Renal/ Medical History: Reports: Hx End Stage Renal Disease. Denies: Hx Peritoneal Dialysis GI Medical History: Reports: Hx Gastroesophageal Reflux Disease Psychiatric Medical History: Reports: Hx Schizophrenia Denies: Hx Depression Past Surgical History: Reports: Hx Oral Surgery - Jaw surgery. Denies: Hx Pacemaker - Immunizations Hx Diphtheria, Pertussis, Tetanus Vaccination: Yes Hx Pneumococcal Vaccination: 04/05/14 Review of Systems - Review of Systems Constitutional: No symptoms reported EENT: No symptoms reported Cardiovascular: No symptoms reported Respiratory: No symptoms reported Gastrointestinal: No symptoms reported Genitourinary: No symptoms reported Musculoskeletal: No symptoms reported Skin: See HPI Hematologic/Lymphatic: See HPI Neurological/Psychological: No symptoms reported Physical Exam - Vital signs Vitals: Temp Pulse Resp BP Pulse Ox 98.0 F 51 L 16 162/76 H 99 01/05/19 02:03 01/05/19 02:03 01/05/19 02:03 01/05/19 02:03 01/05/19 02:03 - Notes Notes: This is a very pleasant 53-year-old male who appears her stated age in no acute distress. Eyes and was functioning traumatic. Pupils are equal round reactive to light. Oral mucosa is moist. Heart is regular rate and rhythm, lungs are clear to auscultation bilaterally. Examination of the left chest wall yields a well bandaged tunneled IJ catheter. The bandages are saturated with blood. He has [address] near the medial clavicle. No active bleeding. He does have a significant amount of clot with hemostasis noted at the site of the catheter entrance into the skin, down to the suture sites on the catheter itself. Absolutely no active bleeding, no induration. No subcutaneous emphysema. Course - Re-evaluation Re-evalutation: 01/05/19 08:13 Patient presents emergency department for evaluation. His bleeding is stopped at this time. I am not inclined to disrupt the clot that he has in place at this time. The area was thoroughly cleansed around the site, and redressed in the same fashion as done initially. Patient tolerated this well. We will have him follow-up with primary care. He is to return to the ED with worsening or concerning symptoms of any sort. - Vital Signs Vital signs: Temp Pulse Resp BP Pulse Ox 98.0 F 51 L 16 162/76 H 99 01/05/19 02:03 01/05/19 02:03 01/05/19 02:03 01/05/19 02:03 01/05/19 02:03 Discharge - Discharge Clinical Impression: Postoperative bleeding from incision Condition: Stable Disposition: HOME, SELF-CARE Additional Instructions: Keep bandage in place. If your bleeding returns, apply pressure. If it persists return to the ED. Otherwise follow-up with primary care this week, return to the ER with worsening or concerning symptoms of any sort. Referrals: BRAYDON KOWALSKI MD [Primary Care Provider] - Follow up as needed
[2019-01-05 08:54] VITALS: BP 149/72
== END 2019-01-05 09:56 | disposition home or self-care (01) ==
LOC: ER 01:29
DX: L76.22 Postprocedural hemorrhage of skin and subcutaneous tissue following other procedure (principal); Z79.899 Other long term (current) drug therapy; I10 Essential (primary) hypertension; E11.9 Type 2 diabetes mellitus without complications
CPT/HCPCS: 99283

== ENCOUNTER 2019-01-12 18:39 | Emergency (ER) | payer MEDICARE, MEDICAID ==
--- NOTE | 2019-01-12 19:14 | ER Document Report ---
ED Medical Screen (RME) - General Chief Complaint: Numbness Stated Complaint: FACIAL NUMBNESS Time Seen by Provider: 01/12/19 19:02 Primary Care Provider: BRAYDON KOWALSKI MD [Primary Care Provider] - Follow up as needed Mode of Arrival: Ambulatory Information source: Patient Notes: HPI: This is a 53-year-old male history of diabetes currently on dialysis Friday, , Friday, here today for diffuse complete right-sided numbness and tingling since about 11:30 AM after getting his dialysis today. This is his third dialysis treatment ever. his fistula is in his left upper anterior chest. pcp is mesha. rectifying attendant is katherine and he goes to [facility] for dialysis. He states the numbness initially started around his lips and felt like his heart was racing a little bit and he was sweaty and nauseous about an hour into his dialysis. He states he is nervous about getting dialysis done. Patient states he was nervous about going to this dialysis facility because his mother went to dialysis there and she is no longer alive. He denies breathing faster or hyperventilating however. He has had a stroke before in the past but states he only had numbness in his right buttocks during that stroke and the numbness was not completely on the entire right side like it is now. He states he had some cramping after the dialysis because they took too much fluid off so they gave him fluid back to try to offset the dehydration which did improve the cramping. He states he felt a little dizzy so he was sent over for evaluation. No altered mental status or syncope. No seizures. No history of this before. he denies any other changes in neurologic. No other complaints at this time. ROS neg to include 10 systems, unless mentioned in the hpi. PE:>>>> PHYSICAL_EXAM: GENERAL_APPEARANCE: well_nourished, alert, cooperative, no_acute_distress, no_obvious_discomfort. pleasant, obese middle aged male who is a somewhat poor historian, speaking in full sentences, in no sign of pain or resp distress, adult male family member at bedside, both speak good beninese VITALS: reviewed, see vital signs table. HEAD: no_swelling\tenderness on the head. normocephalic. atraumatic. no camejo signs. no raccoons eyes. EYES: PERRL, EOMI, conjunctiva_clear. NOSE: no_nasal_discharge. MOUTH: (-)decreased moisture. THROAT: no_tonsilar_inflammation, no_airway_obstruction. no_lymphadenopathy NECK: supple, no_neck_tenderness, full rom. full strength. no jvd. no meningeal signs. BACK: no_back_tenderness. CHEST_WALL: no_chest_tenderness. no overlying skin changes, port intact to left upper anterior chest with dressing intact. no sign of bleeding or infection. nonttp. dressing not removed. LUNGS: no_wheezing, ctab (-)accessory muscle use, good air exchange bilateral. HEART: normal_rate, normal_rhythm, ABDOMEN: normal_BS, soft, no_abd_tenderness, (-)guarding, (-)rebound, no distension or peritoneal signs. no cva ttp EXTREMITIES: strength 5/5 in all_extremities, good pulses in all_extremities, no_swelling\tenderness in the extremities, no_edema. full rom. normal gait. good pulses. brisk cap refill. good hand a and p technician. NEURO: motor and sensation intact, SKIN: warm, dry, good_color, no_rash. MENTAL_STATUS: speech_clear, oriented_X_3, normal_affect, responds_appropriately to questions. MDM: I have ordered labs and initial work-up and patient will be transferred to the main ER for further work-up. I have greeted and performed a rapid initial assessment of this patient. A comprehensive ED assessment and evaluation of the patient, analysis of test results and completion of medical decision making process will be conducted by an additional ED providers. Documentation achieved through voice recording which my lead to some occasional accidental typographical errors. Extensive efforts have been made to proof read documentation to make sure these are the least as possible Temp Pulse Resp BP Pulse Ox 01/12/19 18:49 98.2 F 69 16 147/81 H 100 Category Date Time Status EKG Documentation STAT Care 01/12/19 19:18 Ordered CHEST 2 VIEWS [RAD] Stat Exams 01/12/19 19:[address] HEAD WITHOUT [CT] Stat Exams 01/12/19 19:17 Ordered CBC WITH DIFF [HEME] Stat Lab 01/12/19 19:15 Ordered COMPREHENSIVE METABOLIC PANEL [CHEM] Stat Lab 01/12/19 19:15 Ordered CREATINE KINASE MB [CHEM] Stat Lab 01/12/19 19:15 Ordered CREATINE KINASE [CHEM] Stat Lab 01/12/19 19:15 Ordered MAGNESIUM [CHEM] Stat Lab 01/12/19 19:20 Ordered NT PRO BNP [CHEM] Stat Lab 01/12/19 19:16 Ordered PARTIAL THROMBOPLASTIN TIME [COAG] Stat Lab 01/12/19 19:16 Ordered PROTHROMBIN TIME/INR [COAG] Stat Lab 01/12/19 19:16 Ordered T4 [FREE T4 (FREE THYROXINE)] [CHEM] Stat Lab 01/12/19 19:20 Ordered TROPONIN I [CHEM] Stat Lab 01/12/19 19:16 Ordered TSH [THYROID STIMULATING HORMONE] [CHEM] Stat Lab 01/12/19 19:20 Ordered URINALYSIS [URIN] Stat Lab 01/12/19 19:16 Uncollected EKG ER ONLY [ER] Stat Oth 01/12/19 19:15 Ordered TRAVEL OUTSIDE OF THE [place] IN LAST 30 DAYS: No - Related Data Allergies/Adverse Reactions: JANET Inhibitors Allergy (Verified 01/12/19 18:43) lisinopril Allergy (Verified 01/12/19 18:43) Past Medical History - Past Medical History Cardiac Medical History: Reports: Hx Hypercholesterolemia, Hx Hypertension Pulmonary Medical History: Denies: Hx Tuberculosis Neurological Medical History: Reports: Hx Cerebrovascular Accident Endocrine Medical History: Reports: Hx Diabetes Mellitus Type 1, Hx Diabetes Alisson litus Type 2 Renal/ Medical History: Reports: Hx End Stage Renal Disease. Denies: Hx Peritoneal Dialysis GI Medical History: Reports: Hx Gastroesophageal Reflux Disease Psychiatric Medical History: Reports: Hx Schizophrenia Denies: Hx Depression Past Surgical History: Reports: Hx Oral Surgery - Jaw surgery. Denies: Hx Pacemaker - Immunizations Hx Diphtheria, Pertussis, Tetanus Vaccination: Yes Physical Exam - Vital signs Vitals: Temp Pulse Resp BP Pulse Ox 98.2 F 69 16 147/81 H 100 01/12/19 18:49 01/12/19 18:49 01/12/19 18:49 01/12/19 18:49 01/12/19 18:49 Course - Vital Signs Vital signs: Temp Pulse Resp BP Pulse Ox 98.2 F 69 16 147/81 H 100 01/12/19 18:49 01/12/19 18:49 01/12/19 18:49 01/12/19 18:49 01/12/19 18:49 Doctor's Discharge - Discharge Referrals: BRAYDON KOWALSKI MD [Primary Care Provider] - Follow up as needed
[2019-01-12 20:00] LABS: ABSOLUTE EOSINOPHILS # (AUTO) 0.1 10^3/uL (0.0-0.6); ABSOLUTE LYMPHOCYTES (AUTO) 0.9 10^3/uL (0.5-4.7); ABSOLUTE MONOCYTES (AUTO) 0.5 10^3/uL (0.1-1.4); ABSOLUTE NEUT (AUTO) 3.9 10^3/uL (1.7-8.2); BASOPHILS % (AUTO) 0.5 % (0-2); EOSINOPHILS % (AUTO) 2.1 % (0-6); HEMATOCRIT 25.3 % (37.9-51.0); HEMOGLOBIN 8.7 g/dL (13.5-17.0); LYMPHOCYTES % (AUTO) 17.2 % (13-45); MEAN CORPUSCULAR HEMOGLOBIN 31.2 pg (27.0-33.4); MEAN CORPUSCULAR HGB CONC 34.3 g/dL (32.0-36.0); MEAN CORPUSCULAR VOLUME 91 fl (80-97); MONOCYTES % (AUTO) 8.9 % (3-13); PLATELET COUNT 218 10^3/uL (150-450); RED BLOOD COUNT 2.78 10^6/uL (4.35-5.55); RED CELL DISTRIBUTION WIDTH 12.4 % (11.5-14.0); SEGMENTED NEUTROPHILS % (AUTO) 71.3 % (42-78); TOTAL CELLS COUNTED % (AUTO) 100 %; WHITE BLOOD COUNT 5.4 10^3/uL (4.0-10.5)
[2019-01-12 20:03] LABS: INTERNATIONAL RATION (INR) 1.02; PROTHROMBIN TIME 13.4 SEC (11.4-15.4)
[2019-01-12 20:04] LABS: PARTIAL THROMBOPLASTIN TIME 27.9 SEC (23.5-35.8)
[2019-01-12 20:16] LABS: ALBUMIN 4.7 g/dL (3.5-5.0); ALKALINE PHOSPHATASE 56 U/L (38-126); ANION GAP 10 (5-19); ASPARTATE AMINO TRANSFERASE 17 U/L (17-59); BILIRUBIN,DIRECT 0.3 mg/dL (0.0-0.4); BILIRUBIN,TOTAL 0.3 mg/dL (0.2-1.3); BLOOD UREA NITROGEN 21 mg/dL (7-20); CARBON DIOXIDE 33 mmol/L (22-30); CHLORIDE 91 mmol/L (98-107); GLUCOSE 306 mg/dL (75-110); POTASSIUM 4.1 mmol/L (3.6-5.0); TOTAL PROTEIN 7.4 g/dL (6.3-8.2)
[2019-01-12 20:28] LABS: CREATINE KINASE MB 0.66 ng/mL (<4.55); NT PRO BNP 314 pg/mL (5-900); TROPONIN I < 0.012 ng/mL
--- NOTE | 2019-01-12 20:32 | RADIOLOGY REPORT (SQ) ---
EXAM DESCRIPTION: XR CHEST 2 VIEWS COMPLETED DATE/TME: 01/12/2019 19:16 CLINICAL HISTORY: 53 years, Male, cramping COMPARISON: X-ray chest 01/03/2018 NUMBER OF VIEWS: TECHNIQUE: LIMITATIONS: None. FINDINGS: No evidence of pulmonary infiltrate or pleural effusion. The heart and mediastinum are unremarkable. Pulmonary vascularity appears normal. There is a large bore central venous line with its tip in the superior vena cava. This is a new finding, as compared with the prior study. IMPRESSION: No acute finding. copyright 2010 [employer]- All Rights Reserved
[2019-01-12 20:33] LABS: FREE T4 (FREE THYROXINE) 1.08 ng/dL (0.78-2.19)
--- NOTE | 2019-01-12 20:34 | RADIOLOGY REPORT (SQ) ---
EXAM DESCRIPTION: CT HEAD WITHOUT INTRAVENOUS CONTRAST CLINICAL HISTORY: Right sided numbness. COMPARISON: CT 12/30/2011. TECHNIQUE: CT of the head was performed without intravenous contrast .This exam was performed according to our departmental dose-optimization program, which includes automated exposure control, adjustment of the mA and/or KV according to the patient's size and/or use of iterative reconstruction technique. FINDINGS: normal size ventricles. No evidence for cortical atrophy. Mild bifrontal chronic appearing white matter changes. No obvious acute intra-axial or extra-axial abnormality. Mastoid air cells, paranasal sinuses and bony calvarium are unremarkable. IMPRESSION: There are no acute intracranial findings.
[2019-01-12 20:39] LABS: APPEARANCE,URINE CLEAR; BILIRUBIN,URINE NEGATIVE (NEGATIVE); COLOR,URINE YELLOW; GLUCOSE, URINE >=500 mg/dL (NEGATIVE); KETONES,URINE NEGATIVE (NEGATIVE); LEUKOCYTE ESTERASE,URINE NEGATIVE (NEGATIVE); NITRITE,URINE NEGATIVE (NEGATIVE); PROTEIN,URINE >=500 mg/dL (NEGATIVE); URINE SPECIFIC GRAVITY 1.006; UROBILINOGEN,URINE NEGATIVE mg/dL (<2.0)
[2019-01-12 20:47] LABS: THYROID STIMULATING HORMONE 1.82 uIU/mL (0.47-4.68)
[2019-01-12] MEDS ORDERED: CYCLOBENZAPRINE HCL 10 MG TABLET PO ONE (22:32)
--- NOTE | 2019-01-12 22:38 | ER Document Report ---
ED General - General Chief Complaint: Numbness Stated Complaint: FACIAL NUMBNESS Time Seen by Provider: 01/12/19 19:02 Primary Care Provider: BRAYDON KOWALSKI MD [Primary Care Provider] - Follow up as needed Mode of Arrival: Ambulatory TRAVEL OUTSIDE OF THE [place] IN LAST 30 DAYS: No - HPI Notes: Patient is a 53-year-old male who presents to the emergency department for evaluation. He states he started having perioral, and then right-sided numbness and tingling, about an hour and a half in the dialysis today. He states that that was just before noon. He actually has had perioral numbness and right arm numbness with dialysis on Friday. This is only his third dialysis ever. He does have a history of stroke, states he had right buttock numbness at this time, but his son also notes that he had facial droop and dysarthria associated with this. He continues to take Plavix. The patient denies any difficulty seeing, speaking, swallowing. He states that he felt cramping in his legs during dialysis. He states that they "took too much fluid out," and told him that they were putting some back in. He has had some intermittent cramping on his right side as well. He states he feels tight on that side. This has been an intermittent feeling he has had since his CVA. - Related Data Allergies/Adverse Reactions: JANET Inhibitors Allergy (Verified 01/12/19 18:43) lisinopril Allergy (Verified 01/12/19 18:43) Past Medical History - General Information source: Patient - Social History Smoking Status: Unknown if Ever Smoked Family History: Reviewed & Not Pertinent Patient has suicidal ideation: No Patient has homicidal ideation: No - Past Medical History Cardiac Medical History: Reports: Hx Hypercholesterolemia, Hx Hypertension Pulmonary Medical History: Denies: Hx Tuberculosis Neurological Medical History: Reports: Hx Cerebrovascular Accident Endocrine Medical History: Reports: Hx Diabetes Mellitus Type 2 Renal/ Medical History: Reports: Hx End Stage Renal Disease. Denies: Hx Peritoneal Dialysis GI Medical History: Reports: Hx Gastroesophageal Reflux Disease Psychiatric Medical History: Reports: Hx Schizophrenia Denies: Hx Depression Past Surgical History: Reports: Hx Oral Surgery - Jaw surgery. Denies: Hx Pacemaker - Immunizations Hx Diphtheria, Pertussis, Tetanus Vaccination: Yes Hx Pneumococcal Vaccination: 04/05/14 Review of Systems - Review of Systems Constitutional: No symptoms reported EENT: No symptoms reported Cardiovascular: No symptoms reported Respiratory: No symptoms reported Gastrointestinal: No symptoms reported Genitourinary: No symptoms reported Musculoskeletal: No symptoms reported Skin: No symptoms reported Neurological/Psychological: See HPI Physical Exam - Vital signs Vitals: Temp Pulse Resp BP Pulse Ox 98.2 F 69 16 147/81 H 100 01/12/19 18:49 01/12/19 18:49 01/12/19 18:49 01/12/19 18:49 01/12/19 18:49 - Notes Notes: This is a pleasant but anxious appearing 53-year-old male, who appears his stated age in no acute distress. Vital signs reviewed, please refer to chart. Head is normocephalic, atraumatic. Pupils equal round, reactive to light. Neck is supple without meningismus. Dialysis catheter in place in the left upper chest, no surrounding induration, erythema noted. Heart is regular rate and rhythm. Lungs are clear to auscultation bilaterally. Abdomen is soft, nontender, normoactive bowel sounds throughout. Extremities without cyanosis, clubbing. Posterior calves are nontender. Peripheral pulses are equal. Skin is warm and dry. Patient is awake, alert, oriented x3. Cranial nerves II - XII are grossly intact without focal neurological deficits. Strength is plus 5 out of 5 bilateral upper and lower extremities. Sensation is intact. Reflexes symmetrical. Intact [id number], rapid alternating movements, [id number]. Course - Re-evaluation Re-evalutation: 01/12/19 22:35 Patient presents emergency department for evaluation. He complains of perioral numbness and right-sided tingling, but on exam he has good sensation to light touch, deep pressure, and discrimination. I strongly suspect there is some aspect of anxiety in this patient. Again his neurological exam is entirely unremarkable. His vital signs are normal. His lab did reveal some mild electrolyte abnormalities, and CT scan was unremarkable. The patient did receive IV fluids after dialysis today, and will go back to dialysis on . I am not inclined to give extra IV fluids to a patient who is already on dialysis, especially seeing as he had some earlier today. He remained stable throughout the course of his stay. I encouraged him to continue to follow-up with Dr. Estes and Dr. Kowalski. He actually has a scheduled appointment with Dr. Kowalski in a few days. He states he has been getting some intermittent cramping, so he was given an extra dose of Flexeril, which she Dwayne takes at home. He is to return to the emergency department with worsening or new concerning symptoms of any sort. 01/12/19 22:39 - Vital Signs Vital signs: Temp Pulse Resp BP Pulse Ox 98.2 F 69 16 147/81 H 100 01/12/19 18:49 01/12/19 18:49 01/12/19 18:49 01/12/19 18:49 01/12/19 18:49 - Laboratory Result Diagrams: 01/12/19 19:40 01/12/19 19:40 Laboratory results interpreted by me: 01/12/19 01/12/19 01/12/19 19:40 19:40 19:40 RBC 2.78 L Hgb 8.7 L Hct 25.3 L Sodium 134.0 L Chloride 91 L Carbon Dioxide 33 H BUN 21 H Creatinine 4.35 H Est GFR ( Amer) 17 L Est GFR (Non-Af Amer) 14 L Glucose 306 H Calcium 8.0 L Creatine Kinase 208 H Urine Protein Urine Glucose (UA) Urine Blood 01/12/19 20:04 RBC Hgb Hct Sodium Chloride Carbon Dioxide BUN Creatinine Est GFR ( Amer) Est GFR (Non-Af Amer) Glucose Calcium Creatine Kinase Urine Protein >=500 H Urine Glucose (UA) >=500 H Urine Blood SMALL H - Diagnostic Test Radiology reviewed: Reports reviewed Radiology results interpreted by me: 01/12/19 22:38 Chest X-Ray 01/12/19 19:16 IMPRESSION: No acute finding. copyright 2010 [employer]- All Rights Reserved Head CT 01/12/19 19:17 IMPRESSION: There are no acute intracranial findings. - EKG Interpretation by Me Additional EKG results interpreted by me: 01/12/19 22:41 Sinus mechanism with a rate of 60 bpm. Normal axis. LVH with ST changes consistent with early repolarization. No significant change compared to prior study of November 13, 2017. Discharge - Discharge Clinical Impression: Muscle cramps, Paresthesias Condition: Stable Disposition: HOME, SELF-CARE Instructions: Numbness or Paresthesia ([facility]) Additional Instructions: Continue your home medications as prescribed. Follow-up with Dr. Kowalski as scheduled, reports a dialysis as usual on . Return to the emergency department with worsening or new concerning symptoms of any sort. Referrals: BRAYDON KOWALSKI MD [Primary Care Provider] - Follow up as needed
[2019-01-13 00:53] VITALS: BP 129/78
--- NOTE | 2019-01-13 14:55 | EKG REPORT ---
SEVERITY:- ABNORMAL ECG - SINUS RHYTHM PROBABLE LEFT VENTRICULAR HYPERTROPHY : Confirmed by: Taz Campbell 13-Jan-2019 14:54:34
== END 2019-01-13 00:53 | disposition home or self-care (01) ==
LOC: ER 18:39
DX: R20.0 Anesthesia of skin (principal); R20.2 Paresthesia of skin; R25.2 Cramp and spasm; I12.0 Hypertensive chronic kidney disease with stage 5 chronic kidney disease or end stage renal disease; N18.6 End stage renal disease; E11.22 Type 2 diabetes mellitus with diabetic chronic kidney disease; Z99.2 Dependence on renal dialysis; Z86.73 Personal history of transient ischemic attack (TIA), and cerebral infarction without residual deficits; Z79.02 Long term (current) use of antithrombotics/antiplatelets; Z88.8 Allergy status to other drugs, medicaments and biological substances
CPT/HCPCS: 93005; 99284; 36415; 84439; 82553; 82550; 83735; 84443; 85025; 85610; 85730; 80053; 81001; 84484; 83880; 71046; 70450; 93010; A9270

== ENCOUNTER → 2019-02-10 | Outpatient (CLI) | payer MEDICARE, MEDICAID ==
[2019-02-10 09:46] LABS: ALBUMIN 4.5 g/dL (3.5-5.0); ALKALINE PHOSPHATASE 89 U/L (38-126); ANION GAP 12 (5-19); ASPARTATE AMINO TRANSFERASE 14 U/L (17-59); BILIRUBIN,DIRECT 0.3 mg/dL (0.0-0.4); BILIRUBIN,TOTAL 0.3 mg/dL (0.2-1.3); BLOOD UREA NITROGEN 29 mg/dL (7-20); CALCIUM 9.3 mg/dL (8.4-10.2); CARBON DIOXIDE 31 mmol/L (22-30); CHLORIDE 97 mmol/L (98-107); CHOLESTEROL 133.15 mg/dL (0-200); GLUCOSE 359 mg/dL (75-110); POTASSIUM 4.5 mmol/L (3.6-5.0); TOTAL PROTEIN 7.3 g/dL (6.3-8.2); TRIGLYCERIDES 148 mg/dL (<150)
[2019-02-10 09:58] LABS: DIRECT LDL 53 mg/dL (<100)
== END ==
LOC: OD 08:17
PROVIDERS: ATTEND Internal Medicine
DX: E53.8 Deficiency of other specified B group vitamins (principal); E11.22 Type 2 diabetes mellitus with diabetic chronic kidney disease; E78.5 Hyperlipidemia, unspecified
CPT/HCPCS: 36415; 80053; 80061; 82607; 83036

== ENCOUNTER → 2019-05-10 | Outpatient (CLI) | payer MEDICARE, MEDICAID ==
[2019-05-10 08:51] LABS: ALBUMIN 4.8 g/dL (3.5-5.0); ALKALINE PHOSPHATASE 73 U/L (38-126); ANION GAP 14 (5-19); ASPARTATE AMINO TRANSFERASE 24 U/L (17-59); BILIRUBIN,DIRECT 0.2 mg/dL (0.0-0.4); BILIRUBIN,TOTAL 0.5 mg/dL (0.2-1.3); BLOOD UREA NITROGEN 39 mg/dL (7-20); CALCIUM 10.1 mg/dL (8.4-10.2); CARBON DIOXIDE 29 mmol/L (22-30); CHLORIDE 99 mmol/L (98-107); GLUCOSE 121 mg/dL (75-110); POTASSIUM 4.1 mmol/L (3.6-5.0); TOTAL PROTEIN 8.1 g/dL (6.3-8.2)
== END ==
LOC: OD 07:21
PROVIDERS: ATTEND Internal Medicine
DX: E11.22 Type 2 diabetes mellitus with diabetic chronic kidney disease (principal); N18.9 Chronic kidney disease, unspecified
CPT/HCPCS: 36415; 80053; 83036

== ENCOUNTER → 2019-08-09 | Outpatient (CLI) | payer MEDICARE, MEDICAID ==
[2019-08-09 08:52] LABS: ABSOLUTE EOSINOPHILS # (AUTO) 0.2 10^3/uL (0.0-0.6); ABSOLUTE LYMPHOCYTES (AUTO) 1.6 10^3/uL (0.5-4.7); ABSOLUTE MONOCYTES (AUTO) 0.6 10^3/uL (0.1-1.4); ABSOLUTE NEUT (AUTO) 2.9 10^3/uL (1.7-8.2); BASOPHILS % (AUTO) 0.5 % (0-2); EOSINOPHILS % (AUTO) 3.2 % (0-6); HEMATOCRIT 32.4 % (37.9-51.0); HEMOGLOBIN 11.3 g/dL (13.5-17.0); LYMPHOCYTES % (AUTO) 30.9 % (13-45); MEAN CORPUSCULAR HEMOGLOBIN 33.9 pg (27.0-33.4); MEAN CORPUSCULAR HGB CONC 34.7 g/dL (32.0-36.0); MEAN CORPUSCULAR VOLUME 98 fl (80-97); MONOCYTES % (AUTO) 11.7 % (3-13); PLATELET COUNT 277 10^3/uL (150-450); RED BLOOD COUNT 3.32 10^6/uL (4.35-5.55); RED CELL DISTRIBUTION WIDTH 14.6 % (11.5-14.0); SEGMENTED NEUTROPHILS % (AUTO) 53.7 % (42-78); TOTAL CELLS COUNTED % (AUTO) 100 %; WHITE BLOOD COUNT 5.3 10^3/uL (4.0-10.5)
[2019-08-09 09:00] LABS: ALBUMIN 4.8 g/dL (3.5-5.0); ALKALINE PHOSPHATASE 88 U/L (38-126); ANION GAP 10 (5-19); ASPARTATE AMINO TRANSFERASE 43 U/L (17-59); BILIRUBIN,DIRECT 0.1 mg/dL (0.0-0.4); BILIRUBIN,TOTAL 0.4 mg/dL (0.2-1.3); BLOOD UREA NITROGEN 32 mg/dL (7-20); CARBON DIOXIDE 30 mmol/L (22-30); CHLORIDE 98 mmol/L (98-107); CHOLESTEROL 170.16 mg/dL (0-200); GLUCOSE 122 mg/dL (75-110); POTASSIUM 4.4 mmol/L (3.6-5.0); TOTAL PROTEIN 7.7 g/dL (6.3-8.2); TRIGLYCERIDES 321 mg/dL (<150)
[2019-08-09 09:11] LABS: DIRECT LDL 48 mg/dL (<100)
[2019-08-09 09:17] LABS: VLDL CHOLESTEROL 64.2 mg/dL (10-31)
[2019-08-10 12:36] LABS: CREATININE URINE 102.1 mg/dL (Not Estab.); MICROALBUMIN URINE 328.8 ug/mL (Not Estab.)
== END ==
LOC: OD 07:04
PROVIDERS: ATTEND Internal Medicine
DX: E11.22 Type 2 diabetes mellitus with diabetic chronic kidney disease (principal); E78.5 Hyperlipidemia, unspecified
CPT/HCPCS: 36415; 80053; 80061; 82043; 82570; 83036; 85025

== ENCOUNTER → 2019-08-11 | Outpatient (CLI) | payer MEDICARE, MEDICAID ==
--- NOTE | 2019-08-11 09:36 | WOMENS IMAGING REPORT ---
EXAM DESCRIPTION: 3D DX MAMMO BILAT; U/S BREAST UNILAT LIMITED COMPLETED DATE/TIME: 08/11/2019 9:22 am; 08/11/2019 8:59 am REASON FOR STUDY: D48.62 NEOPLASM OF UNCERTAIN BEHAVIOR OF LEFT BREAST; LT BREAST LUMP D48.62 NEOPL ASM OF UNCERTAIN BEHAVIOR OF LEFT BREAST COMPARISON: None. EXAM PARAMETERS: Standard craniocaudal and mediolateral oblique views of each breast recorded using digital acquisition and breast tomosynthesis. Left true lateral view. Targeted left breast ultrasound with limited right comparison imaging. Read with the assistance of CAD: .[employer] Electronic Specialist Version 9.2 LIMITATIONS: None. FINDINGS: RIGHT BREAST MASSES: No suspicious masses. CALCIFICATIONS: No new or suspicious calcifications. ARCHITECTURAL DISTORTION: None. ASYMMETRY: None noted. OTHER: No other significant findings. LEFT BREAST MASSES: No suspicious masses. CALCIFICATIONS: No new or suspicious calcifications. ARCHITECTURAL DISTORTION: None. ASYMMETRY: Generalized asymmetric increased density in the left breast. This is subareolar but also regionally. OTHER: No other significant finding. Ultrasound: Imaging of the left breast reveals irregular hypoechoic tissue tracking to the sub areol ar region. Asymmetric compared to the right breast. IMPRESSION: 1. Presumed gynecomastia ; no discrete masses or areas of tissue distortion. The asymmetric tissue l ooks fairly extensive, however, and if there are clinically suspicious features, biopsy may still be warranted. BREAST DENSITY: c. The breasts are heterogeneously dense, which may obscure small masses. BIRAD: ASSESSMENT: 2 Benign findings. RECOMMENDATION: RECOMMENDED FOLLOW UP: As above. Clinical followup is necessary. SPECIFIC INTERVENTION/IMAGING/CONSULTATION RECOMMENDED:No additional intervention/ imaging/consultati on needed at this time. COMMENT: The patient has been notified of the results by letter per SA requirements. Additional no tification policies are in place for contacting patient with suspicious or incomplete findings. Quality ID #225: The [employer] recommends an annual screening mammogram for women aged 40 years or over. This facility utilizes a reminder system to ensure that all patients receive reminder letters, and/or direct phone calls for appointments. This includes reminders for routine scr eening mammograms, diagnostic mammograms, or other Breast Imaging Interventions when appropriate. Th is patient will be placed in the appropriate reminder system. TECHNICAL DOCUMENTATION: FINDING NUMBER: (1) ASSESSMENT: (1) JOB ID: [id number] 2010 [employer]- All Rights Reserved Reading location - IP/workstation name: [email or web address]
--- NOTE | 2019-08-11 09:36 | WOMENS IMAGING REPORT ---
EXAM DESCRIPTION: 3D DX MAMMO BILAT; U/S BREAST UNILAT LIMITED COMPLETED DATE/TIME: 08/11/2019 9:22 am; 08/11/2019 8:59 am REASON FOR STUDY: D48.62 NEOPLASM OF UNCERTAIN BEHAVIOR OF LEFT BREAST; LT BREAST LUMP D48.62 NEOPL ASM OF UNCERTAIN BEHAVIOR OF LEFT BREAST COMPARISON: None. EXAM PARAMETERS: Standard craniocaudal and mediolateral oblique views of each breast recorded using digital acquisition and breast tomosynthesis. Left true lateral view. Targeted left breast ultrasound with limited right comparison imaging. Read with the assistance of CAD: .[employer] Version 9.2 LIMITATIONS: None. FINDINGS: RIGHT BREAST MASSES: No suspicious masses. CALCIFICATIONS: No new or suspicious calcifications. ARCHITECTURAL DISTORTION: None. ASYMMETRY: None noted. OTHER: No other significant findings. LEFT BREAST MASSES: No suspicious masses. CALCIFICATIONS: No new or suspicious calcifications. ARCHITECTURAL DISTORTION: None. ASYMMETRY: Generalized asymmetric increased density in the left breast. This is subareolar but also regionally. OTHER: No other significant finding. Ultrasound: Imaging of the left breast reveals irregular hypoechoic tissue tracking to the sub areol ar region. Asymmetric compared to the right breast. IMPRESSION: 1. Presumed gynecomastia ; no discrete masses or areas of tissue distortion. The asymmetric tissue l ooks fairly extensive, however, and if there are clinically suspicious features, biopsy may still be warranted. BREAST DENSITY: c. The breasts are heterogeneously dense, which may obscure small masses. BIRAD: ASSESSMENT: 2 Benign findings. RECOMMENDATION: RECOMMENDED FOLLOW UP: As above. Clinical followup is necessary. SPECIFIC INTERVENTION/IMAGING/CONSULTATION RECOMMENDED:No additional intervention/ imaging/consultati on needed at this time. COMMENT: The patient has been notified of the results by letter per SA requirements. Additional no tification policies are in place for contacting patient with suspicious or incomplete findings. Quality ID #225: The [employer] recommends an annual screening mammogram for women aged 40 years or over. This facility utilizes a reminder system to ensure that all patients receive reminder letters, and/or direct phone calls for appointments. This includes reminders for routine scr eening mammograms, diagnostic mammograms, or other Breast Imaging Interventions when appropriate. Th is patient will be placed in the appropriate reminder system. TECHNICAL DOCUMENTATION: FINDING NUMBER: (1) ASSESSMENT: (1) JOB ID: [id number] 2010 [employer]- All Rights Reserved Reading location - IP/workstation name: [email or web address]
== END ==
LOC: WI 08:05
PROVIDERS: ATTEND Internal Medicine
DX: D48.62 Neoplasm of uncertain behavior of left breast (principal)
CPT/HCPCS: 76642; 77066; G0279; 77062

== ENCOUNTER → 2019-09-17 | Outpatient (CLI) | payer MEDICARE, MEDICAID ==
--- NOTE | 2019-09-17 08:36 | RADIOLOGY REPORT (SQ) ---
EXAM DESCRIPTION: U/S ABDOMEN LIMITED W/O DOP IMAGES COMPLETED DATE/TIME: 09/17/2019 7:55 am REASON FOR STUDY: B17.9 ACUTE VIRAL HEPATITIS, UNSPECIFIED B17.9 ACUTE VIRAL HEPATITIS, UNSPECIFIED COMPARISON: None. TECHNIQUE: Dynamic and static grayscale images acquired of the abdomen and recorded on PACS. Additio nal selected color Doppler and spectral images recorded. LIMITATIONS: None. FINDINGS: PANCREAS: The visualized portions of the pancreas appear normal. LIVER: The echogenicity of the hepatic parenchyma is increased relative to that of the kidney. LIVER VASCULATURE: Hepatopetal directional flow within the portal veins. GALLBLADDER: The gallbladder wall measures 2 mm in thickness. There is no cholelithiasis, sludge or pericholecystic fluid. ULTRASOUND-DETECTED PACHECO'S SIGN: Negative. INTRAHEPATIC DUCTS AND COMMON DUCT: The common bile duct measures 5.4 mm in diameter. There is no di latation of the intrahepatic bile ducts. INFERIOR VENA CAVA: Obscured by overlying bowel. AORTA: No aneurysm. RIGHT KIDNEY: The right kidney measures 10.2 cm in length. There is no hydronephrosis. PERITONEAL AND RIGHT PLEURAL SPACE: No ascites or effusions. OTHER: No other findings. IMPRESSION: 1. Increased echogenicity of hepatic parenchyma. The finding is nonspecific and is héctor cated of diffuse hepatocellular disease the most common etiology being steatosis. 2. No other abnormality. TECHNICAL DOCUMENTATION: JOB ID: [id number] 2010 [employer]- All Rights Reserved Reading location - IP/workstation name: [email or web address]
== END ==
LOC: RAD 07:59
PROVIDERS: ATTEND Internal Medicine Nephrology
DX: B17.9 Acute viral hepatitis, unspecified (principal)
CPT/HCPCS: 76705

== ENCOUNTER 2019-10-04 02:40 | Emergency (ER) | payer MEDICARE, MEDICAID ==
--- NOTE | 2019-10-04 03:41 | ER Document Report ---
Entered by GABRIEL JAUREGUI SCRIBE 10/04/19 0315 Acting as scribe for:MARISOL GONZALEZ IV, MD ED Extremity Problem, Upper - General Mode of Arrival: Ambulatory Information source: Patient TRAVEL OUTSIDE OF THE [place] IN LAST 30 DAYS: No <MARISOL GONZALEZ IV - Last Filed: 10/04/19 03:45> <MARK RESENDEZ Amanda - Last Filed: 10/04/19 09:49> - General Chief Complaint: Arm Problem Stated Complaint: ARM NUMBNESS Primary Care Provider: Carolina NIXON MD [ACTIVE STAFF] - Follow up as needed Notes: This 53 year old male patient with a history of type 2 diabetes mellitus on dialysis (T,,Sat) presents to the ED today with complaints of pain and swelling near his AV fistula located on his right forearm that started yesterday. Patient states that he went to dialysis x2 days ago and the staff there had difficulty accessing the fistula. He reports that the day after dialysis, he noticed some ecchymosis and swelling near his fistula. He states that he noticed increased ecchymosis, swelling, and firmness to his forearm in addition to numbness/tingling from his mid-bicep to his fingers this morning, so he decided to come to the ED. Denies fever. (MARISOL GONZALEZ IV) - Related Data Allergies/Adverse Reactions: JANET Inhibitors Allergy (Verified 10/04/19 02:47) lisinopril Allergy (Verified 10/04/19 02:47) Past Medical History - General Information source: Patient - Social History Smoking Status: Current Every Day Smoker Cigarette use (# per day): Yes Chew tobacco use (# tins/day): No Smoking Education Provided: No Frequency of alcohol use: None Drug Abuse: None Family History: Reviewed & Not Pertinent Patient has suicidal ideation: No Patient has homicidal ideation: No - Past Medical History Cardiac Medical History: Reports: Hx Hypercholesterolemia, Hx Hypertension Neurological Medical History: Reports: Hx Cerebrovascular Accident Endocrine Medical History: Reports: Hx Diabetes Mellitus Type 2 Renal/ Medical History: Reports: Hx End Stage Renal Disease GI Medical History: Reports: Hx Gastroesophageal Reflux Disease Psychiatric Medical History: Reports: Hx Schizophrenia Past Surgical History: Reports: Hx Oral Surgery - Jaw surgery - Immunizations Hx Diphtheria, Pertussis, Tetanus Vaccination: Yes Hx Pneumococcal Vaccination: 04/05/14 <MARISOL GONZALEZ IV - Last Filed: 10/04/19 03:45> Review of Systems - Review of Systems Constitutional: See HPI. denies: Fever EENT: No symptoms reported Cardiovascular: No symptoms reported Respiratory: No symptoms reported Gastrointestinal: No symptoms reported Genitourinary: No symptoms reported Male Genitourinary: No symptoms reported Musculoskeletal: See HPI, Other - Right forearm pain Skin: See HPI, Other - Swelling and ecchymosis near AV fistula in right forearm Hematologic/Lymphatic: No symptoms reported Neurological/Psychological: See HPI, Numbness - RUE, Tingling - RUE -: Yes All other systems reviewed and negative <MARISOL GONZALEZ IV - Last Filed: 10/04/19 03:45> Physical Exam - General General appearance: Alert In distress: None - HEENT Head: Normocephalic, Atraumatic Eyes: Normal Pupils: PERRL - Respiratory Respiratory status: No respiratory distress Chest status: Nontender Breath sounds: Normal Chest palpation: Normal - Cardiovascular Rhythm: Regular Heart sounds: Normal auscultation Murmur: No Friction rub: No Gallop: None auscultated - Abdominal Inspection: Normal Distension: No distension Bowel sounds: Normal Tenderness: Nontender - Abdomen soft Organomegaly: No organomegaly - Back Back: Normal, Nontender - Extremities Forearm: Ecchymosis - Areas of lateral ecchymosis to anterior surface of right proximal forearm., Other - Swelling noted in right forearm, but the compartment still feels soft to palpation Hand: Other - Capillary refill < 2 seonds in fingertips of right hand. Sensation and ROM intact in digits of right hand - Neurological Neuro grossly intact: Yes Orientation: AAOx4 - Psychological Associated symptoms: Normal affect, Normal mood - Skin Skin Temperature: Warm Skin Moisture: Dry Skin Color: Normal Skin irregularity: other - Swelling and ecchymosis noted to right forearm <MARISOL GONZALEZ IV - Last Filed: 10/04/19 03:45> - Vital signs Vitals: Temp Pulse BP Pulse Ox 98.6 F 67 161/75 H 100 10/04/19 02:45 10/04/19 02:45 10/04/19 02:45 10/04/19 02:45 Course - Diagnostic Test Radiology reviewed: Image reviewed, Reports reviewed <MARK RESENDEZ - Last Filed: 10/04/19 09:49> - Vital Signs Vital signs: Temp Pulse Resp BP Pulse Ox 97.6 F 59 L 16 129/65 H 96 10/04/19 06:32 10/04/19 06:32 10/04/19 06:32 10/04/19 06:32 10/04/19 06:32 - Laboratory Laboratory results interpreted by me: 10/04/19 10/04/19 08:00 09:27 POC Glucose 63 L 132 H - Diagnostic Test Radiology results interpreted by me: 10/04/19 09:43 Venous Doppler of right upper extremity shows no deep vein thrombosis. Patient cephalic vein appears inflamed. Patient is a dialysis patient and has a dialysis shunt in this region there is chronic inflammation but no tear and no blood clot. I shared this information with subject patient and explained to him that there was no acute process found today on the venous study of his right upper extremity. Patient states that he does have swelling since his dialysis on Friday through 2 days ago and states that and swelling was not present until after he was he was stuck with a needle surgeon for access for dialysis on Friday. (MARK RESENDEZ) Discharge <MARISOL GONZALEZ IV - Last Filed: 10/04/19 03:45> <MARK RESENDEZ - Last Filed: 10/04/19 09:49> - Discharge Clinical Impression: Pain and swelling of right forearm Condition: Good Disposition: HOME, SELF-CARE Additional Instructions: You have soft tissue swelling and ecchymosis noted at the dialysis catheter access in your right upper extremity. No fever or chills per history. Inasmuch as you have noted swelling and ecchymosis from the needle punctures I am placing you on Keflex to avoid any infection. Follow-up with your primary care physician in your electric meter installer as directed. Prescriptions: Cephalexin Monohydrate [Keflex 500 mg Capsule] 500 mg PO QID #10 capsule Referrals: Carolina NIXON MD [ACTIVE STAFF] - Follow up as needed I personally performed the services described in the documentation, reviewed and edited the documentation which was dictated to the scribe in my presence, and it accurately records my words and actions.
[2019-10-04 09:45] VITALS: BP 150/79
--- NOTE | 2019-10-04 10:02 | RADIOLOGY REPORT (SQ) ---
EXAM DESCRIPTION: VENOUS UNILATERAL UPPER IMAGES COMPLETED DATE/TIME: 10/04/2019 9:37 am REASON FOR STUDY: right forearm swollen where avf is COMPARISON: None. TECHNIQUE: Dynamic and static atkins scale and color images acquired of the right arm venous system. S elected spectral images acquired with additional compression and augmentation maneuvers. The contrala teral subclavian vein and internal jugular vein were also imaged. Images stored on PACS. LIMITATIONS: None. FINDINGS: INTERNAL JUGULAR VEIN: Normal phasicity, compression, augmentation. No visualized echogeni c material on atkins scale. No defects on color images. Comparison opposite side normal. SUBCLAVIAN VEIN: Normal compression, augmentation. No visualized echogenic material on atkins scale. No defects on color images. AXILLARY VEIN: Normal compression, augmentation. No visualized echogenic material on atkins scale. No d efects on color images. BRACHIAL VEIN: Normal compression, augmentation. No visualized echogenic material on atkins scale. No d efects on color images. BASILIC VEIN: Normal compression, augmentation. No visualized echogenic material on atkins scale. No de fects on color images. CEPHALIC VEIN: Normal compression, augmentation. No visualized echogenic material on atkins scale. No d efects on color images. OTHER: The radiocephalic fistula is patent. The wall of the cephalic vein at the site of concern in the right forearm appears thickened. There is no hematoma. CONTRALATERAL INTERNAL JUGULAR VEIN: Normal phasicity, compression and augmentation. No visualized echogenic material on atkins scale. No de fects on color images. IMPRESSION: 1. NO EVIDENCE DVT OR SVT IN THE RIGHT ARM. 2. PATENT RIGHT RADIOCEPHALIC FISTULA. 3. THE WALL OF THE CEPHALIC VEIN AT THE SITE OF CONCERN ON THE RIGHT FORMER APPEARS THICKENED. THE FINDING COULD REPRESENT A PHLEBITIS OR AN INTRAMURAL HEMATOMA. TECHNICAL DOCUMENTATION: JOB ID: [id number] 2010 [employer]- All Rights Reserved Reading location - IP/workstation name: [email or web address]
== END 2019-10-04 09:54 | disposition home or self-care (01) ==
LOC: ER 02:40
DX: R22.31 Localized swelling, mass and lump, right upper limb (principal); R20.0 Anesthesia of skin; E11.22 Type 2 diabetes mellitus with diabetic chronic kidney disease; I12.0 Hypertensive chronic kidney disease with stage 5 chronic kidney disease or end stage renal disease; N18.6 End stage renal disease; Z99.2 Dependence on renal dialysis; E78.00 Pure hypercholesterolemia, unspecified; Z86.73 Personal history of transient ischemic attack (TIA), and cerebral infarction without residual deficits
CPT/HCPCS: 82962; 93971; 99284

== ENCOUNTER → 2019-11-17 | Outpatient (CLI) | payer MEDICARE, MEDICAID ==
[2019-11-17 08:04] LABS: ALBUMIN 4.8 g/dL (3.5-5.0); ALKALINE PHOSPHATASE 90 U/L (38-126); ANION GAP 10 (5-19); ASPARTATE AMINO TRANSFERASE 19 U/L (17-59); BILIRUBIN,TOTAL 0.5 mg/dL (0.2-1.3); BLOOD UREA NITROGEN 25 mg/dL (7-20); CALCIUM 9.4 mg/dL (8.4-10.2); CARBON DIOXIDE 32 mmol/L (22-30); CHLORIDE 99 mmol/L (98-107); CHOLESTEROL 158.74 mg/dL (0-200); POTASSIUM 3.9 mmol/L (3.6-5.0); TOTAL PROTEIN 7.9 g/dL (6.3-8.2); TRIGLYCERIDES 118 mg/dL (<150)
[2019-11-17 08:15] LABS: DIRECT LDL 57 mg/dL (<100)
[2019-11-17 08:33] LABS: GLUCOSE 67 mg/dL (75-110)
== END ==
LOC: OD 07:09
PROVIDERS: ATTEND Internal Medicine
DX: E11.22 Type 2 diabetes mellitus with diabetic chronic kidney disease (principal); N18.5 Chronic kidney disease, stage 5; E78.5 Hyperlipidemia, unspecified
CPT/HCPCS: 36415; 80053; 80061; 83036

== ENCOUNTER → 2020-02-09 | Outpatient (CLI) | payer MEDICARE, MEDICAID ==
[2020-02-09 08:06] LABS: ABSOLUTE EOSINOPHILS # (AUTO) 0.2 10^3/uL (0.0-0.6); ABSOLUTE LYMPHOCYTES (AUTO) 1.3 10^3/uL (0.5-4.7); ABSOLUTE MONOCYTES (AUTO) 0.7 10^3/uL (0.1-1.4); ABSOLUTE NEUT (AUTO) 4.2 10^3/uL (1.7-8.2); BASOPHILS % (AUTO) 0.5 % (0-2); EOSINOPHILS % (AUTO) 2.7 % (0-6); HEMATOCRIT 38.1 % (37.9-51.0); HEMOGLOBIN 13.3 g/dL (13.5-17.0); LYMPHOCYTES % (AUTO) 20.3 % (13-45); MEAN CORPUSCULAR HEMOGLOBIN 33.9 pg (27.0-33.4); MEAN CORPUSCULAR HGB CONC 34.9 g/dL (32.0-36.0); MEAN CORPUSCULAR VOLUME 97 fl (80-97); MONOCYTES % (AUTO) 11.5 % (3-13); PLATELET COUNT 317 10^3/uL (150-450); RED BLOOD COUNT 3.93 10^6/uL (4.35-5.55); RED CELL DISTRIBUTION WIDTH 13.4 % (11.5-14.0); TOTAL CELLS COUNTED % (AUTO) 100 %; WHITE BLOOD COUNT 6.4 10^3/uL (4.0-10.5)
[2020-02-09 08:30] LABS: ALBUMIN 4.8 g/dL (3.5-5.0); ALKALINE PHOSPHATASE 95 U/L (38-126); ANION GAP 10 (5-19); ASPARTATE AMINO TRANSFERASE 24 U/L (17-59); BILIRUBIN,DIRECT 0.4 mg/dL (0.0-0.4); BILIRUBIN,TOTAL 0.6 mg/dL (0.2-1.3); BLOOD UREA NITROGEN 28 mg/dL (7-20); CALCIUM 9.5 mg/dL (8.4-10.2); CARBON DIOXIDE 31 mmol/L (22-30); CHLORIDE 100 mmol/L (98-107); GLUCOSE 127 mg/dL (75-110); POTASSIUM 4.4 mmol/L (3.6-5.0); TOTAL PROTEIN 7.7 g/dL (6.3-8.2)
== END ==
LOC: OD 07:17
PROVIDERS: ATTEND Internal Medicine
DX: E11.22 Type 2 diabetes mellitus with diabetic chronic kidney disease (principal); N18.5 Chronic kidney disease, stage 5
CPT/HCPCS: 36415; 80053; 83036; 85025

== ENCOUNTER → 2020-04-10 | Outpatient (CLI) | payer MEDICARE, MEDICAID ==
--- NOTE | 2020-04-10 09:52 | ER [facility] ASSESSMENT REPORT ---
Intake - In the Last 14 days Have you traveled outside [place]?: No Have you been in close contact with someone CONFIRMED: No Worked in Healthcare?: No - Symptoms Subjective Fever([place] feverish): No Chills: No Muscule Aches: No Runny Nose: No Sore Throat: No Cough (New or worsening chronic cough): No Shortness of breath: No Nausea or Vomiting: No Headache: No Abdominal Pain: No Diarrhea(3 or more loose stools in last 24 hours): No - Do you have any of the following Chronic lung disease: Asthma or emphysema or COPD: No Cystic Fibrosis: No Diabetes: Yes High Blood Pressure: Yes Cardiovascular Disease: Yes Chronic Kidney Disease: Yes Chronic Liver Disease: No Chronic blood disorder like Sickle Cell Disease: No Weak immune system due to disease or medication: No Neurologic condition that limits movement: No Developmental delay - Moderate to Severe: No Recent (within past 2 weeks) or current : No Morbid Obesity (>100 pounds over ideal weight): No - Objective Temperature: 98.6 F Pulse Rate: 65 Respiratory Rate: 14 Blood Pressure: 128/69 O2 Sat by Pulse Oximetry: 97 Objective: Given above, testing performed: If Testing Performed: Test Specimen Type Sent to General - General Information source: Patient Notes: Patient presents to the [facility] for screening for the coronavirus. Patient denies any symptoms. Patient states that he advertisement on the TV and wanted to get tested. Patient does have a history of diabetes, hypertension, stroke and dialysis. - Related Data Allergies/Adverse Reactions: JANET Inhibitors Allergy (Verified 10/04/19 02:47) lisinopril Allergy (Verified 10/04/19 02:47) Past Medical History - General Information source: Patient - Social History Smoking Status: Current Every Day Smoker Family History: Reviewed & Not Pertinent - Past Medical History Cardiac Medical History: Reports: Hx Hypercholesterolemia, Hx Hypertension Pulmonary Medical History: Denies: Hx Tuberculosis Neurological Medical History: Reports: Hx Cerebrovascular Accident Endocrine Medical History: Reports: Hx Diabetes Mellitus Type 1, Hx Diabetes Mellitus Type 2 Renal/ Medical History: Reports: Hx End Stage Renal Disease. Denies: Hx Peritoneal Dialysis GI Medical History: Reports: Hx Gastroesophageal Reflux Disease Psychiatric Medical History: Reports: Hx Schizophrenia Denies: Hx Depression Past Surgical History: Reports: Hx Oral Surgery - Jaw surgery. Denies: Hx Pacemaker Physical Exam - Notes Notes: The patient was evaluated during the global Covid 19 pandemic, and that diagnosis was suspected/considered upon their initial presentation. Their evaluation, treatment and testing was consistent with current guidelines for patients who present with complaints or symptoms that may be related to Covid 19. Full physical exam could not be performed due to covid 19 isolation protocols. Constitutional: Nontoxic appearance, no acute distress Eyes: Nonicteric, extraocular movements intact, sclera clear Cardiovascular: Heart rate and rhythm regular, no JVD Respiratory: Breath sounds clear bilaterally, nonlabored breathing, no use of accessory muscles, no tachypnea Gastrointestinal: Abdomen not distended Muculoskeletal: Moves all extremities well Skin: Normal color Neuro: Awake alert oriented, normal speech Psych: Normal mood and affect Diagnostic Results Laboratory Results: Patient presents for screening for possible Covid 19. Patient does not have emergency worrying symptoms such as difficulty breathing, shortness of breath, chest pain, pressure, confusion or cyanosis. Patient appears suitable for discharge as vital signs are stable and patient is nontoxic in appearance. Go od return precautions have been discussed with patient, patient verbalized understanding and is agreeable with discharge plan of care at this time. Patient Education/Counseling Counseling/Education: Patient was provided with discharge information including: As a person under investigation for Covid 19, the [place] department of Health and Human Services, division of public health advises you to adhere to the following guidance until your test results are reported to you. If your test result is positive, you will receive additional information from your provider and your local health department at that time. Remain at home until you are cleared by the health provider or public health authorities. Keep a log of visitors to your home, notify any visitors to your home of your isolation status. If you plan to move to a new address or leave the county, notify the local health department in your County. Call your doctor or seek care if you have an urgent medical need. Before seeking medical care, call ahead to get instructions from the provider before arriving at the medical office clinic or hospital. Notify them that you are being tested for the virus that causes Covid 19 so that arrangements can be made, as necessary, to prevent transmission to others in the healthcare setting. Next, notify the local health department in your county. If a medical emergency arises and you need to call 911, inform the first responders that you are being tested for the virus that causes Covid 19. Next, notify the local health department in your county. [facility] Discharge - Discharge Clinical Impression: Encounter for screening laboratory testing for COVID-19 virus Condition: Stable Disposition: Home; Selfcare
[2020-04-10 09:53] VITALS: BP 128/69
== END ==
LOC: RDC 09:01
PROVIDERS: ATTEND Nurse Practitioner Family
DX: Z20.828 Contact with and (suspected) exposure to other viral communicable diseases (principal); E11.22 Type 2 diabetes mellitus with diabetic chronic kidney disease; I12.0 Hypertensive chronic kidney disease with stage 5 chronic kidney disease or end stage renal disease; N18.6 End stage renal disease; Z99.2 Dependence on renal dialysis; E78.00 Pure hypercholesterolemia, unspecified; K21.9 Gastro-esophageal reflux disease without esophagitis; F17.210 Nicotine dependence, cigarettes, uncomplicated; F20.89 Other schizophrenia; Z86.73 Personal history of transient ischemic attack (TIA), and cerebral infarction without residual deficits
CPT/HCPCS: 99201; U0003; G0463; C9803; 87635; 99211